=== PATIENT | female | born 1955 | race Caucasian/White ===

== ENCOUNTER 2021-01-06 11:44 | Emergency (ER) | payer MEDICARE, SELFPAY ==
--- NOTE | ~2021-01-06 | CT_ITS ---
EXAMINATION: CT lumbar spine wo mai EXAM DATE: 01/06/2021 13:29 INDICATION: low back pain, injury. TECHNIQUE: Spiral CT lumbar spine was performed without contrast. Axial, coronal and sagittal images of the lumbar spine were reviewed. The dose-length product (DLP) for this examination was 396.23 mGy- cm. The exposure was tailored according to patient size (auto mA exposure control), and iterative re construction (ASIR) was used as additional dose reduction technique. There is no prior study for hunter garcia. FINDINGS: There is mild to moderate compression fracture of T12, mildly hazy paraspinal fat in the re gion, probably an acute finding. No unstable thoracolumbar fractures or other acute findings. Mild lo ss of the L5-S1 disc height. The vertebral bodies are aligned in the AP dimension. There is small sli ding gastroesophageal hiatal hernia. IMPRESSION: T12 mild to moderate acute compression fracture. Reviewed, dictated and finalized at location A. [employer] [employer]
[2021-01-06 11:46] VITALS: BP 160/74; PULSE 120; RESP 20; TEMP 36.6; O2SAT 95
--- NOTE | 2021-01-06 13:00 | PC.NURSE ---
ERPA at bedside for pt assessment.
--- NOTE | 2021-01-06 13:11 | ED.BACK ---
HPI - Back Pain/Injury General Chief Complaint: Back Pain/Injury Stated Complaint: back pain Time Seen by Provider: 01/06/21 12:51 Source: patient Mode of arrival: ambulatory Limitations: no limitations History of Present Illness HPI Narrative: This is a 65-year-old female that presents to the emergency department for low back pain after an injury earlier this week. Reports she lifted something heavy and since has had low back pain. Worse with movement and relieved with rest. The pain is radiating around to her sides. Denies fever, vomiting, dysuria, hematuria, numbness or weakness. Related Data Allergies Allergy/AdvReac Type Severity Reaction Status Date / Time Penicillins Allergy Mild Unknown Verified 01/06/21 12:00 Review of Systems Review of Systems: CONSTITUTIONAL: Denies fever GASTROINTESTINAL: Denies abdominal pain, nausea, vomiting GENITOURINARY: Denies dysuria or hematuria. MUSCULOSKELETAL: Reports back pain, joint pain, and myalgia. NEUROLOGIC: Denies numbness, or weakness. All systems reviewed & are unremarkable except as noted in HPI and below PMFSH Past Medical History Medical History (Updated 01/06/21 @ 15:26 by Mikala Shearer PA-C) Closed compression fracture of thoracic vertebra No active medical problems Social History Social History (Updated 01/06/21 @ 13:13 by Mikala Shearer PA-C) Substance use: never Exam Narrative: GENERAL: Well-appearing, well-nourished, and in no acute distress. HEAD: Normocephalic, atraumatic. EYES: EOMI. CHEST: Clear to auscultation. No respiratory distress. No wheezes rales or rhonchi HEART: Regular rate and rhythm. No murmur heard. Normal peripheral pulses. BACK: No midline spinal tenderness EXTREMITIES: Normal range of motion. No edema. Strength equal in bilateral lower extremities (5/5) SKIN: Warm, dry, no rash. NEURO: No focal deficits. Alert and oriented x3. PSYCH: Normal mood and affect Course Consultations Consultation #1: Spoke with Dr. Naidu about patient and workup who recommends referral to interventional pain consultants for possible vertebroplasty. He can also follow-up with patient if needed Date: 01/06/21 Time: 15:00 Vital Signs Vital signs: Vital Signs Temperature 97.9 F 01/06/21 11:46 Pulse Rate 120 H 01/06/21 11:46 Respiratory Rate 20 01/06/21 11:46 Blood Pressure 160/74 H 01/06/21 11:46 Pulse Oximetry 95 01/06/21 11:46 Temperature 97.9 F 01/06/21 11:46 Pulse Rate 120 H 01/06/21 11:46 Respiratory Rate 20 01/06/21 11:46 Blood Pressure 160/74 H 01/06/21 11:46 Pulse Oximetry 95 01/06/21 11:46 MDM - Back Pain/Injury MDM Narrative Medical decision making narrative: Patient presents the emergency department after lifting injury 5 days ago with low back pain. Patient is neurologically intact. CT scan of lumbar spine shows a T12 mild to moderate acute compression. Patient given dose of Tylenol and Valium with improvement. Spoke with Dr. Naidu about patient and workup who recommends referral to interventional pain consultants for possible vertebroplasty. He can also follow-up with patient if needed. Patient is stable and felt appropriate for further outpatient evaluation. Will also be given neurosurgery if needed for follow-up. She was given warnings to return to the ER Imaging Data Radiologist's impression: ITS Impressions Lumbar Spine CT 01/06/21 14:12 IMPRESSION: T12 mild to moderate acute compression fracture. Critical Care Time Critical Care Time Critical Care Time: No Discharge Plan Discharge Clinical Impression: Closed compression fracture of thoracic vertebra Qualifiers: Encounter type: initial encounter Qualified Code(s): S22.000A - Wedge compression fracture of unspecified thoracic vertebra, initial encounter for closed fracture Patient Disposition: Home, Self-Care Condition: Stable Instructions: Vertebral Compression Fracture (ED) Additional Instruct
[2021-01-06] MEDS: ACETAMINOPHEN 500 MG TABLET 1000 MG PO (13:21)
[2021-01-06] MEDS: diazePAM INJ (*CRX) 10 MG/2 ML SYRINGE 5 MG IM (13:21)
--- NOTE | 2021-01-06 13:24 | PC.NURSE ---
Pt to xray.
== END 2021-01-06 15:45 | disposition home or self-care (01) ==
PROVIDERS: Emergency Provider Emergency Medicine; PCP Family Medicine
DX: S22.080A Wedge compression fracture of T11-T12 vertebra, initial encounter for closed fracture (principal); X50.0XXA Overexertion from strenuous movement or load, initial encounter
CPT/HCPCS: 72131; 96372; 99284; A9270; J3360